=== PATIENT | female | born 1970 | race Caucasian/White ===

== ENCOUNTER 2016-10-26 01:20 | Emergency (ER) | payer MEDICARE ==
[~2016-10-26] VITALS: Ht 160 cm; Wt 73.0 kg
[2016-10-26 01:22] VITALS: BP 122/83
== END 2016-10-26 02:44 | disposition home or self-care (01) ==
LOC: ED 02:31
DX: S62.614A Displaced fracture of proximal phalanx of right ring finger, initial encounter for closed fracture (principal); X58.XXXA Exposure to other specified factors, initial encounter; Z90.710 Acquired absence of both cervix and uterus; Y93.89 Activity, other specified; Y92.009 Unspecified place in unspecified non-institutional (private) residence as the place of occurrence of the external cause; Y99.9 Unspecified external cause status
CPT/HCPCS: 29125; 99284

== ENCOUNTER 2017-07-27 12:06 | Emergency (ER) | payer MEDICARE ==
[~2017-07-27] VITALS: Ht 152.4 cm; Wt 72.5 kg
[2017-07-27 12:11] VITALS: BP 106/71
[2017-07-27] MEDS ORDERED: KETOROLAC 30 MG/1 ML IVPush ONE (13:00)
[2017-07-27] MEDS ORDERED: SODIUM CHLORIDE FLUSH 10ML SYR IVF ONE (13:00)
[2017-07-27] MEDS ORDERED: ONDANSETRON 2MG/ML, 2ML IVPush ONE (13:00)
[2017-07-27] MEDS ORDERED: MORPHINE SULFATE 4 MG/ML, 1ML IVPush PRN (13:00)
[2017-07-27 13:19] LABS: BASOPHILS # (AUTO) 0.04 x10^3/uL (0-0.1); BASOPHILS % (AUTO) 0 % (0-1); EOSINOPHILS # (AUTO) 0.21 x10^3/uL (0-0.4); EOSINOPHILS % (AUTO) 2 % (1-7); LYMPHOCYTES # (AUTO) 2.88 x10^3/uL (1-3.4); LYMPHOCYTES % (AUTO) 31 % (22-44); MD NO; MEAN CORPUSCULAR HEMOGLOBIN 29.8 pg (27.0-34.8); MEAN CORPUSCULAR HGB CONC 33.9 g/dL (32.4-35.8); MEAN CORPUSCULAR VOLUME 87.9 fL (80-100); MEAN PLATELET VOLUME 7.7 fL (7.4-10.4); MONOCYTES # (AUTO) 0.51 x10^3/uL (0.2-0.8); MONOCYTES % (AUTO) 6 % (2-9); NEUTROPHILS # (AUTO) 5.53 x10^3/uL (1.8-6.8); NEUTROPHILS % (AUTO) 60 % (42-75); PLATELET COUNT 449 x10^3/uL (130-400); RED BLOOD COUNT 5.29 x10^6/uL (3.82-5.3); RED CELL DISTRIBUTION WIDTH 13.9 % (9.6-15.2)
[2017-07-27 13:28] LABS: ALANINE AMINOTRANSFERASE 15 U/L (12-78); ALBUMIN 3.9 g/dL (3.4-5.0); ANION GAP 7 mmol/L (5-15); CALCIUM 9.2 mg/dL (8.5-10.1); CHLORIDE 102 mmol/L (98-107); CREATININE 0.87 mg/dL (0.55-1.02)
[2017-07-27 13:29] LABS: MICROSCOPIC NOT IND
[2017-07-27 13:31] LABS: ALKALINE PHOSPHATASE 86 U/L (45-117); BILIRUBIN,TOTAL 0.3 mg/dL (0.2-1.0); TOTAL PROTEIN 8.2 g/dL (6.4-8.2)
[2017-07-27 13:34] LABS: CULTURE INDICATED? NO
== END 2017-07-27 16:57 | disposition home or self-care (01) ==
LOC: ED 16:51
DX: M54.5 Low back pain (principal); F25.9 Schizoaffective disorder, unspecified; F31.9 Bipolar disorder, unspecified; Z87.442 Personal history of urinary calculi
CPT/HCPCS: 36415; 74176; 80053; 81003; 85025; 99285

== ENCOUNTER 2017-12-24 16:51 | Emergency (ER) | payer MEDICARE ==
[~2017-12-24] VITALS: Ht 162.6 cm; Wt 73.6 kg
[2017-12-24 16:53] VITALS: BP 112/82
[2017-12-24] MEDS ORDERED: LIDOCAINE-MPF 1%, 2ML ONE (18:34)
== END 2017-12-24 18:37 | disposition home or self-care (01) ==
LOC: ED 18:35
DX: R60.0 Localized edema (principal); M25.561 Pain in right knee
CPT/HCPCS: 29505; 99284